=== PATIENT | male | born 2000 | race African-American/Black ===

== ENCOUNTER 2021-07-27 10:03 | Emergency (ER) | payer SELFPAY | END 2021-07-27 10:20 | disposition home or self-care (01) | LOC: CSHERS 10:03 | DX: G56.32 Lesion of radial nerve, left upper limb (principal) | CPT/HCPCS: 99283 ==

== ENCOUNTER 2022-01-18 08:55 | Emergency (ER) | payer OTHER, SELFPAY | END 2022-01-18 09:39 | disposition home or self-care (01) | LOC: CSHERS 08:55 | DX: S76.212A Strain of adductor muscle, fascia and tendon of left thigh, initial encounter (principal); X50.9XXA Other and unspecified overexertion or strenuous movements or postures, initial encounter | CPT/HCPCS: 99283 ==